=== PATIENT | male | born 2000 | race Caucasian/White ===

== ENCOUNTER 2020-01-11 10:20 | Emergency (ER) | payer SELFPAY ==
[2020-01-11 10:30] VITALS: BP 153/91; PULSE 76; RESP 17; TEMP 37.1; O2SAT 96
--- NOTE | 2020-01-11 10:49 | ED.GENADUL_ITS ---
Discharge Plan Disposition Patient Disposition: HOME Condition: Stable Discharge Details Chief Complaint: Orthopedic Clinical Impression: Left shoulder strain Primary Care Provider: Mukund Chavez ED Provider: Radha Daniels Home Meds and New Rx's Prescriptions: No Action No Known Home Meds RF: 0 Discharge Instructions Instructions: Shoulder Sprain (ED) Additional Instructions: Take Motrin 600 mg every 6 hours as needed for pain. You can also supplement with Tylenol 500 mg every 4 hours as needed for pain. Apply ice to the affected area several times daily for 20 minutes at a time. Follow-up with your primary care doctor in 1 week as needed. Return to the emergency department with any worsening or new concerning symptoms. Stand Alone Forms: Work Release Discharge Data Discharge Date/Time-TO BE ENTERED AT DEPARTURE: 01/11/20 10:57 Discharge Physician: Radha Daniels Medical Decision Making 19-year-old male with a history of left AC injury who presents with left shoulder pain since yesterday after heavy lifting at work. Denies any known injury. Patient has full range of motion at left shoulder with no evidence of trauma, infection or rash. He has reproducible pain with range of motion but has full active and passive range of motion at left shoulder. He has neurovascular intact. Do not see an indication for imaging. Discussed with patient that he is advised to alternate Tylenol and Motrin and apply ice and avoid heavy lifting over the next week. He is advised on the importance of gentle range of motion of the left shoulder to prevent capsulitis. He was given a work note to avoid heavy lifting over the next week. Usual and customary return precautions given prior to discharge. Medical Records Medical records reviewed: Yes I reviewed the patient's medical records. HPI General Mode of arrival: ambulatory . Date/Time Provider Initiated Documentation: 01/11/20 10:29 . Limitations to Documentation: no limitations . Information obtained by: patient . HPI Narrative: Patient is a 19-year-old male who presents with left shoulder pain since yesterday. Patient states he has a history of AC injury at work 1 year ago and states he had been doing heavy exertional lifting at work yesterday. He denies any known specific injury. He states the pain is worse with movement, specifically when lifting his arm out and upward. He has not taken any medication for pain. He states his girlfriend advised that he come to the ER today for a sling and x-ray. Related Data Home Medications Medication Instructions Recorded Confirmed Unknown [No Known Home Meds] 01/11/20 01/11/20 Allergies Allergy/AdvReac Type Severity Reaction Status Date / Time Penicillins Allergy Unknown Unverified 01/11/20 10:36 General Stated Complaint: Orthopedic LUZ ELENA: 4 Review of Systems All systems reviewed & are unremarkable except as noted in HPI and below Constitutional Constitutional: Reports as per HPI, Denies chills and Denies fever(s) Eyes Eyes: Denies blurry vision ENT Ears, Nose, Mouth, and Throat: Denies dizziness, Denies sore throat and Denies throat swelling Cardiovascular Cardiovascular: Denies chest pain and Denies dyspnea Respiratory Respiratory: Denies cough and Denies dyspnea Gastrointestinal Gastrointestinal: Denies abdominal pain, Denies diarrhea and Denies vomiting Genitourinary Genitourinary: Denies hematuria and Denies dysuria Musculoskeletal Musculoskeletal: Denies back pain and Denies numbness Comments: Left shoulder pain. Integumentary/Breasts Skin/Breast: Denies lesions and Denies rash Neurologic Neurologic: Denies dizziness, Denies localized weakness and Denies numbness Allergic/Immunologic Allergic/Immunologic: Denies throat swelling [facility] Medical History (Updated 01/11/20 @ 12:47 by Radha Daniels DO) No significant past medical history (Acute) Surgical History (Updated 01/11/20 @ 12:47 by Radha Daniels DO) No significant past surgical history (Acute) Social History Smoking/Tobacco Use Status: Current-Occasional Tobacco Type: cigarettes Substance use type: does not use Do you feel safe at home: Yes Do you feel safe in your relationship?: Yes Exam Const General: cooperative, healthy appearing and no acute distress HENMT Head: normal to inspection Mouth: oral mucosae normal Eyes General: appearance normal, both eyes and all related structures Neck Neck: normal visual inspection Resp Effort & Inspection: normal respiratory effort and able to speak in complete sentences Cardio Rate: regular rate Skin General skin exam: no rashes or lesions noted Neuro General: patient alert, patient awake and patient oriented x3 Motor: muscle tone normal throughout and strength 5/5 throughout Extrem Other: Tenderness to palpation overlying trapezius muscle on left side. There is pain in this area with all range of motion, most specifically abduction and flexion at shoulder. There is full active and passive range of motion but with pain. There is no evidence of trauma, infection or rash. Bilateral upper e xtremity distal pulses intact. Psych Appearance: grossly normal Affect: normal affect Course Vital Signs Vital signs: Vital Signs Temperature 98.8 F 01/11/20 10:30 Pulse 76 01/11/20 10:30 Respiratory Rate 17 01/11/20 10:30 Blood Pressure 153/91 H 01/11/20 10:30 Pulse Oximetry 96 01/11/20 10:30 Temperature 98.8 F 01/11/20 10:30 Temperature Source Temporal Artery Scan 01/11/20 10:30 Pulse 76 01/11/20 10:30 Respiratory Rate 17 01/11/20 10:30 Respiratory Effort 01/11/20 10:32 Blood Pressure 153/91 H 01/11/20 10:30 Blood Pressure Position Sitting 01/11/20 10:30 Pulse Oximetry 96 01/11/20 10:30 Oxygen Delivery Method Room Air 01/11/20 10:30 Oxygen Flow Rate 0 01/11/20 10:30 Pain Level 9 01/11/20 10:30
[2020-01-11] MEDS: Ibuprofen 600 MG TAB PO (10:57)
== END 2020-01-11 10:57 | disposition home or self-care (01) ==
PROVIDERS: Emergency Provider Physician Assistant; PCP Family Medicine
DX: S46.912A Strain of unspecified muscle, fascia and tendon at shoulder and upper arm level, left arm, initial encounter (principal); X50.0XXA Overexertion from strenuous movement or load, initial encounter; Y99.0 Civilian activity done for income or pay
CPT/HCPCS: 99283

== ENCOUNTER 2023-01-08 11:40 | Emergency (ER) | payer SELFPAY ==
[2023-01-08 11:44] VITALS: BP 139/84; PULSE 92; RESP 18; TEMP 36.9; O2SAT 100
--- NOTE | 2023-01-08 11:59 | ED.GENADUL_ITS ---
Discharge Plan Disposition Patient Disposition: Home Condition: Good Discharge Details Clinical Impression: Chin laceration Primary Care Provider: None,None ED Provider: Carmen Moore Home Meds and New Rx's Prescriptions: No Action No Known Home Meds Discharge Instructions Instructions: Laceration (ED) Additional Instructions: Please keep wound clean, dry. May wash with running water and soap and then pat dry. Monitor for signs infection including redness, warmth, drainage, increased pain, fever/chills. If you develop these or other new/worsening symptoms please seek care urgently once again. Otherwise, please return in 1 week for reevaluation and suture removal. Discharge Data Discharge Date/Time-TO BE ENTERED AT DEPARTURE: 01/08/23 13:11 Medical Decision Making Patient is a pleasant 22 year old male, accompanied by significant other, with c/c of chin laceration. He reports that last night, he ate something hot and suffered a syncopal episode. Describes prodromal symptoms. He reports that this has been an issue as this as a trigger in the past. Also has hx of seizure but was not have seizure like activity, woke within a few seconds, no posticatl period. He reports that when he suffered this, he had been sitting at his kitchen table and fell striking his chin. Denies SANTIZO, neck pain, back pain, visual changes. He suffered chin laceration. Washed this immediately after. He did not seek out care initially as he started new job this AM, wanted to start and not miss his first day, also wanted to get started so he would have insurance. Of note, patient has not had f/u for his possible seizure disorder, thought he had outgrown this, does not had any routine medical care. On exam, patient appears nontoxic, resting comfortably. Neurologically intact. His hx and story is most consistent with vasovagal episode, particularly as he has had this in the past and had prodromal symptoms. Significant other was present at the time of the event, able to recall what she witnessed as well. Laceration around 2cm in length, no deep structure invovlement. Based on exam and history, I do not see evidence to suggest ICH, seizure, c-spine fx or other signficant injury. I am concerned given length of time since the injury about increased risk of infection. However, it is still within closure window, in a highly vascular area and was cleaned well by SO. We discussed risks/benefits of closure, concern, in particular, of infection. We discussed options and have decided to close with simple interupted sutures in hopes that if infection arises, it will allow for drainage. Patient and SO voice understanding and wish to proceed. Please see proceedure note. Patient tolerated this well. Explored to base in a bloodless field with no FB or debris noted. Wound closed with gaps purposefully left between them. Patient, SO and I discussed wound care in depth, discussed strict return precautions. Tetanus up to date per patient. He will return in one week for reevaluation and suture removal. All of his questions and concerns were addressed, he is in agreement with this plan. HPI General Date/Time Provider Initiated Documentation: 01/08/23 11:58 . Limitations to Documentation: no limitations . Information obtained by: patient, family and RN notes reviewed . History of Present Illness 22 year old M presents to the emergency department with the chief complaint of chin laceration, described as mild (denies any pain currently), and is localized to the face. Patient reports no radiation. Patient started experiencing this hour(s) (10) and it has been constant. No relieving factors improve symptom(s), No exacerbating factors reported . Patient notes no other symptoms.. Patient did receive the following treatments prior to arrival, other (washed the wound) Related Data Home Medications Medication Instructions Recorded Confirmed Unknown [No Known Home Meds] 01/11/20 01/08/23 Allergies Allergy/AdvReac Type Severity Reaction Status Date / Time Penicillins Allergy Unknown Unverified 01/08/23 11:47 General Stated Complaint: AMS/LOC LUZ ELENA: 3 Review of Systems Constitutional Constitutional: Reports as per HPI, Denies fever(s), Denies frequent falls and Denies weakness Eyes Eyes: Reports as per HPI, Denies blurry vision and Denies change in vision ENT Ears, Nose, Mouth, and Throat: Denies neck pain Cardiovascular Cardiovascular: Reports as per HPI, Denies chest pain, Denies lightheadedness, Denies dyspnea and Denies dyspnea on exertion Respiratory Respiratory: Reports as per HPI, Denies chest congestion, Denies cough, Denies dyspnea and Denies dyspnea on exertion Gastrointestinal Gastrointestinal: Reports as per HPI, Denies abdominal pain, Denies change in bowel habits, Denies nausea and Denies vomiting Musculoskeletal Musculoskeletal: Reports as per HPI, Denies back pain and Denies neck pain Integumentary/Breasts Skin/Breast: Reports as per HPI Neurologic Neurologic: Reports as per HPI, Denies abnormal movements, Denies abnormal speech, Denies behavioral changes, Denies confusion, Denies frequent falls, Denies sensory deficit and Denies weakness Psychiatric Psychiatric: Denies behavioral changes and Denies confusion PFSH All Active Problems (Updated 01/08/23 @ 13:06 by LEYLA Campos) Chin laceration (Acute) Medical History (Updated 01/08/23 @ 13:06 by LEYLA Campos) No significant past medical history Seizure disorder Surgical History (Updated 01/11/20 @ 12:47 by Radha Daniels DO) No significant past surgical history Social History Smoking/Tobacco Use Status: Current-Occasional Tobacco Type: cigars Smoking risk assessment performed?: Yes Drug use: Daily Substance use type: marijuana Do you feel safe at home: Yes Do you feel safe in your relationship?: Yes Exam Const General: cooperative, healthy appearing, uncomfortable, no acute distress, well developed and well groomed Nutritional Appearance: average body habitus and well nourished Orientation: alert, awake and oriented x3 HENMT Head: normal to inspection, no palpable skull fracture, normocephalic and atraumatic Ears: hearing grossly normal bilaterally, external ears normal and TM's normal bilaterally General nose exam: external nose normal Face and sinus: abnormal facial exam (chin laceration as below), laceration, no maxillary instability and no tenderness Face images: 1. 2cm laceration with edges about 1cm apart. No deep structure involvement, no intraoral or through and through laceration. No FB or debris noted. Full ROM of the TMJ, no catching/locking of the joint. No mandibular swelling. No instability. No maxillary instability. Mouth: oral mucosae normal and moist mucous membranes Teeth and gingiva: dentition normal and gingiva normal Throat: posterior oropharynx normal Eyes General: appearance normal, both eyes and all related structures Alignment and Position: alignment normal Periorbital: periorbital findings normal Eyelids: eyelids normal Sclera: sclerae normal Cornea: corneas normal Pupils: PERRL EOM: EOM intact bilaterally Neck Neck: normal visual inspection and full ROM Resp Effort & Inspection: normal respiratory effort, able to speak in complete sentences and no respiratory distress Back/Spine/Pelvis Cervical Spine: normal cervical lordosis, cervical ROM normal, No pain with cervical ROM, No cervical spinal tenderness and No step off deformity Skin Trauma: laceration Neuro General: patient alert, patient awake and patient oriented x3 Cranial Nerves: CN's II-XI intact bilaterally Cognition: normal cognition Speech: speech normal Gait: normal gait Motor: muscle tone normal throughout, strength 5/5 throughout, no pronator drift, no movement abnormalities noted and no fasciculations Sensory Exam: no sensory deficits noted Coordination: [id number] test normal Psych Appearance: grossly normal and well kempt Mental Status: mental status grossly normal Speech and Movement: speech and movement normal Course Vital Signs Vital signs: Vital Signs Temperature 36.9 C 01/08/23 11:44 Pulse 92 H 01/08/23 11:44 Respiratory Rate 18 01/08/23 11:44 Blood Pressure 139/84 01/08/23 11:44 Pulse Oximetry 100 01/08/23 11:44 Temperature 36.9 C 01/08/23 11:44 Temperature Source Oral 01/08/23 11:44 Pulse 92 H 01/08/23 11:44 Respiratory Rate 18 01/08/23 11:44 Respiratory Effort Normal 01/08/23 11:46 Blood Pressure 139/84 01/08/23 11:44 Blood Pressure Position Sitting 01/08/23 11:44 Pulse Oximetry 100 01/08/23 11:44 Oxygen Delivery Method Room Air 01/08/23 11:44 Oxygen Flow Rate 0 01/08/23 11:44 Pain Level 0 01/08/23 11:44 Procedures Laceration Laceration 1: Site: face (chin) Size (cm): 3 Description: irregular Depth: simple, single layer Local Anesthetic: Lidocaine 1% and with Epi Amount of anesthesia used (mL): 5 Pre-repair: wound explored, irrigated extensively and deep structures intact Skin layer closed with: nylon Number of sutures: 4 Technique: simple, interrupted
--- NOTE | 2023-01-08 13:16 | NUR.NOTE ---
Nursing Note:Referral given to Care Management for needs PCP; establish care/routine follow up.
== END 2023-01-08 13:11 | disposition home or self-care (01) ==
PROVIDERS: Emergency Provider Physician Assistant
DX: S01.81XA Laceration without foreign body of other part of head, initial encounter (principal); W19.XXXA Unspecified fall, initial encounter; R55 Syncope and collapse
CPT/HCPCS: 12013

== ENCOUNTER 2023-01-15 16:40 | Emergency (ER) | payer SELFPAY ==
[2023-01-15 16:42] VITALS: BP 124/59; PULSE 79; RESP 15; TEMP 36.6; O2SAT 100
--- NOTE | 2023-01-15 17:14 | W.ED.GENAD ---
Discharge Plan Disposition Patient Disposition: Home Condition: Good Discharge Details Clinical Impression: Encounter for removal of sutures, Chin laceration Primary Care Provider: None,None ED Provider: Carmen Moore Home Meds and New Rx's Prescriptions: No Action No Known Home Meds Discharge Instructions Instructions: Laceration (ED) Additional Instructions: Your wound appears to be healing well no signs of infection. Please continue to keep this clean and dry. Monitor for signs infection including redness, warmth, drainage, increased pain, fever/chills or other new/worsening symptoms. If you develop these or other symptoms please seek care urgently once again. Otherwise, please continue to work with animal caretaker in regard to obtaining local primary care. Please do not shave over this area until wound has completely healed. Discharge Data Discharge Date/Time-TO BE ENTERED AT DEPARTURE: 01/15/23 17:26 Medical Decision Making Patient is a pleasant 22 year old male, accompanied by signifcant other and child, presenting for c/c of suture removal from chin. Wound closed by myself one week ago. He reports that pain is signficantly better, no fevers/chills. Has been monitoring for symptoms of infection and has not noted any. Denies jaw pain. No recurrent issues. On exam, patient has laceration to chin, healing well without signs of infection, wound edges well approximated. Patient and I discussed suture removal and continued wound care. Sutures removed by myself without complication, patient tolerated this well. #4 sutures removed. Wound healing well, advised on contineud care. discussed thaa tthis is still healing and to continue to monitor for sxs of infection. All of his questions and concerns were addressed, he is in agreement with this plan. HPI General Date/Time Provider Initiated Documentation: 01/15/23 16:43. Limitations to Documentation: no limitations. Information obtained by: patient, family and RN notes reviewed. History of Present Illness 22 year old M presents to the emergency department with the chief complaint of suture removal for chin laceration, described as mild (reports no pain currently), and is localized to the face. Patient reports no radiation. Patient started experiencing this week(s) (1) and it has been now resolved (pain improved). No exacerbating factors reported . Patient notes no other symptoms.. Patient did receive the following treatments prior to arrival, other (closed with sutures) Related Data Home Medications Medication Instructions Recorded Confirmed Unknown [No Known Home Meds] 01/11/20 01/15/23 Allergies Allergy/AdvReac Type Severity Reaction Status Date / Time Penicillins Allergy Unknown Unverified 01/15/23 16:46 General Stated Complaint: SutureRem LUZ ELENA: 4 Review of Systems Constitutional Constitutional: Reports as per HPI, Denies chills, Denies fever(s) and Denies weakness Musculoskeletal Musculoskeletal: Reports as per HPI and Denies tingling Integumentary/Breasts Skin/Breast: Reports as per HPI Neurologic Neurologic: Denies sensory deficit, Denies tingling and Denies weakness PFSH All Active Problems (Updated 01/15/23 @ 17:22 by LEYLA Campos) Chin laceration (Acute) Encounter for removal of sutures (Acute) Medical History (Updated 01/15/23 @ 17:22 by LEYLA Campos) No significant past medical history Seizure disorder Surgical History (Updated 01/11/20 @ 12:47 by Radha Daniels DO) No significant past surgical history Social History Smoking/Tobacco Use Status: Current-Occasional Tobacco Type: cigars Smoking risk assessment performed?: Yes Drug use: Daily Substance use type: marijuana Do you feel safe at home: Yes Do you feel safe in your relationship?: Yes Exam Const General: cooperative, healthy appearing, comfortable, no acute distress and well developed Nutritional Appearance: average body habitus and well nourished Orientation: alert and awake [facility] Face images: 1. Area of laceration. Healing well without erythema, warmth, drainage. Sensation intact. Sutures appear ready to come out with no gaps int he woud edges. Resp Effort & Inspection: normal respiratory effort, able to speak in complete sentences and no respiratory distress Cardio Rate: regular rate Rhythm: regular rhythm Skin Trauma: laceration (healing well after suture closure) Neuro General: patient alert and patient awake Cognition: normal cognition Speech: speech normal Gait: normal gait Motor: muscle tone normal throughout Psych Appearance: grossly normal and well kempt Mental Status: mental status grossly normal Speech and Movement: speech and movement normal Course Vital Signs Vital signs: Vital Signs Temperature 36.6 C 01/15/23 16:42 Pulse 79 01/15/23 16:42 Respiratory Rate 15 01/15/23 16:42 Blood Pressure 124/59 L 01/15/23 16:42 Pulse Oximetry 100 01/15/23 16:42 Temperature 36.6 C 01/15/23 16:42 Temperature Source Oral 01/15/23 16:42 Pulse 79 01/15/23 16:42 Respiratory Rate 15 01/15/23 16:42 Respiratory Effort Normal 01/15/23 16:44 Blood Pressure 124/59 L 01/15/23 16:42 Blood Pressure Position Sitting 01/15/23 16:42 Pulse Oximetry 100 01/15/23 16:42 Oxygen Delivery Method Room Air 01/15/23 16:42 Oxygen Flow Rate 0 01/15/23 16:42 Pain Level 0 01/15/23 16:42
== END 2023-01-15 17:26 | disposition home or self-care (01) ==
PROVIDERS: Emergency Provider Physician Assistant
DX: S01.81XD Laceration without foreign body of other part of head, subsequent encounter (principal); Z48.02 Encounter for removal of sutures